=== PATIENT | male | born 1930 | race Caucasian/White ===

== ENCOUNTER → 2017-06-17 | Day surgery (SDC) | payer MEDICARE, BC ==
[~2017-06-17] VITALS: Ht 167.6 cm; Wt 70.0 kg
[~2017-06-17] MED LIST: ALPR0.25 PO; ASPI1TAB57 PO; BUPIVACAINE HCL PF 0.25% 30 ML VIAL INFIL ONE; BYST5TAB2 PO; CEPH-459 PO; CHLORHEXIDINE GLUCONATE 2 % 1 PACK (2 CLOTHS) TOPICAL PRN; HYDR-3288 PO; IRBE150T15 PO; LACTATED RINGER'S 1000 ML IV PRN; LIDOCAINE HCL 2% 50 ML VIAL INFIL ONE; METOPROLOL TARTRATE 25 MG TAB PO PRN; POVIDONE IODINE 5% (ANTISEPSIS KIT) 4 APPLICATIONS EACH NARE PRN; SODIUM CHLORID 0.9% 500 ML IV PRN; VYTO10TA25 PO; ceFAZolin 1,000 MG/NS 100 ML IV SCH
--- NOTE | 2017-06-17 12:51 | MP ---
cc: Rambo Brian MD DATE OF OPERATION: 06/17/2017 PREOPERATIVE DIAGNOSES: Right carpal tunnel syndrome, severe. PROCEDURE PERFORMED: Right open carpal tunnel release. SURGEON: Rambo Brian III, MD. PROCEDURE: The patient was brought to the operating room and placed supine on the operating table. After the correct site and side of surgery were verified by members of each team in the room multiple times including the patient and myself and after adequate preoperative markings and preoperative consent were verified by everyone and after adequate time-out was performed to everyone's satisfaction, after adequate IV sedation had been achieved, the right upper extremity was prepped and draped in the traditional sterile surgical fashion. A 50/50 mixture of 2% plain lidocaine and 0.5% plain Marcaine was injected in the skin and subcutaneous tissue at the base of the palm and into the carpal tunnel. The limb was exsanguinated with a gentle Julio wrap and a highly placed well-padded axillary tourniquet was inflated to 180 mmHg for a total of 9 minutes. A longitudinally oriented incision in the skin lines at the base of the palm was made and carried down through the skin and subcutaneous tissue. Blunt dissection was performed. Bipolar electrocautery was used as needed. The palmar fascia was retracted in opposite directions. The motor branch of the thenar muscle was identified and retracted out of the way. The transverse carpal ligament was then transected to the ulnar side of its midline and the carpal tunnel contents were completely freed. There was a noticeable rebound. There was a moderately hypertrophic tenosynovium within the carpal tunnel, as well. There was no other evidence of any mass effect. There were no other anatomic abnormalities identified. A thorough irrigation was performed. The skin edges were then reapproximated using running 4-0 nylon sutures. The hand and arm were thoroughly cleansed and dried with Betadine and Adaptic dressings were applied on top of the wounds, followed by a bulky soft dressing. The axillary tourniquet was released. The hand and all the fingers became immediately soft, pink, warm and had brisk capillary refill of less than 2 seconds. A circumferential dressing was placed in the usual fashion. The patient was awakened from anesthesia and transported to the postanesthesia care unit awake and in stable condition at the end of the case. The sponge, needle and instrument counts were correct at the end of the case as reported by nurses in the room. MD KRIS Gonzales/CHANA , 12:35 PM , 12:51 PM
[2017-06-17 13:25] VITALS: BP 120/67; PULSE 58; RESP 16; TEMP 97.9; O2SAT 98
== END | disposition home or self-care (01) ==
LOC: PHSDC 08:39
PROVIDERS: ATTEND Orthopaedic Surgery Hand Surgery
DX: G56.01 Carpal tunnel syndrome, right upper limb (principal)
CPT/HCPCS: 01810; 64721; J0690; J3010; J7120